=== PATIENT | female | born 1970 | race Caucasian/White ===

== ENCOUNTER 2017-07-10 10:35 | Emergency (ER) | payer OTHER ==
[~2017-07-10] VITALS: Ht 160 cm; Wt 83.0 kg
[~2017-07-10 10:35] MED LIST: FEXO1TAB58 PO
[2017-07-10 11:02] VITALS: TEMP 36.6; Ht 160 cm; Wt 83.0 kg
--- NOTE | 2017-07-10 11:39 | EMERGENCY ROOM VISIT NOTE ---
History First contact with patient: 11:23 Chief Complaint: FLANK PAIN Stated Complaint: BACK PAIN SHOOTS TO FRONT KIDNEY POSS STONE History of Present Illness The patient is a 46 year old female who presents to the Emergency Room with complaints of left flank pain radiating into the left pelvis with nausea which began yesterday morning. Patient states she does have a history of kidney stones, and while this pain is not as severe as pain she has had with previous kidney stones, it does remind her of that same type of pain. She states the pain comes and goes, and seems to be worse with movement. Patient admits to feeling bloated in addition to the pain. She denies any urinary symptoms including frequency, hesitancy, dysuria, or hematuria. She denies any recent illness, upper respiratory infection symptoms, vomiting, diarrhea, constipation , chest pain, or dyspnea. She describes the pain as shooting, and rates it 8/ 10 when it occurs, however it does not come very frequently and seems to be very dull in that area the rest of the time. She states she has been taking ibuprofen which does mildly help with the symptoms. The patient denies any recent fever or chills. Review of Systems A complete 10 point review of systems was reviewed with the patient with pertinent positives and negatives as per history of present illness. All else were negative. Past Medical/Surgical History Surgical Problems: (1) H/O: hysterectomy Family History Diabetes mellitus FH: heart disease FHx: cancer FHx: gallbladder disease Hypertension Kidney disease Kidney stones Social History Smoking Status: Never Smoker Smokeless Tobacco Use: No Alcohol Use: occasionally Drug Use: none Housing Status: lives with family Occupation Status: employed Current/Historical Medications Scheduled Fexofenadine-Pseudoephedrine (Lety-D 24 Hour Allergy), 1 TAB PO HS Ibuprofen (Advil), 400 MG PO UD Polyethylene Glycol 3350 (Miralax), 17 GM PO DAILY Physical Exam Vital Signs Date Time Temp Pulse Resp B/P (MAP) Pulse Ox O2 Delivery O2 Flow Rate FiO2 07/10/17 15:49 73 18 113/77 99 Room Air 07/10/17 14:01 78 18 108/68 100 Room Air 07/10/17 12:28 65 18 95/66 95 Room Air 07/10/17 11:02 36.6 77 20 116/76 99 Room Air Physical Exam VITALS: Vitals are noted on the nurse's note and reviewed by myself. Vital signs stable. GENERAL: This is a 46-year-old white female, in no acute distress, nondiaphoretic, well-developed well-nourished. SKIN: The skin was without rashes, erythema, edema, or bruising. There is no tenting of the skin. Capillary reflex less than 2 seconds. HEAD: Normocephalic atraumatic. EARS: External auditory canals clear, tympanic membranes pearly gerardo without erythema or effusion bilaterally. EYES: Pupils equal round and reactive to light and accommodation. Conjunctivae without injection, sclerae without icterus. Extraocular movements intact. NOSE: Patent, turbinates without inflammation or discharge. No sinus tenderness. MOUTH: Mucous membranes moist. Tonsils are not enlarged. Pharynx without erythema or exudate. Uvula midline. Airway patent. Tongue does not deviate. NECK: Supple without nuchal rigidity. No lymphadenopathy. No thyromegaly. Cervical spine is nontender. No JVD. HEART: Regular rate and rhythm without murmurs gallops or rubs. LUNGS: Clear to auscultation bilaterally without wheezes, rales or rhonchi. No dullness to percussion. No retractions or accessory muscle use. ABDOMEN: Positive bowel sounds x 4. Normal tympanic percussion. Tenderness in the left suprapubic/pelvic region. Positive CVA tenderness on the left. The abdomen was otherwise soft, without masses or organomegaly. Dubois sign negative. No guarding or rebound tenderness. MUSCULOSKELETAL: No muscle atrophy, erythema, or edema noted. Full range of motion without joint tenderness in all extremities. No tenderness to palpation. Normal gait. Strength 5/5 throughout. NEURO: Patient was alert and oriented to person place and time. Normal sensation to light and sharp touch. Deep tendon reflexes 2+ throughout. No focal neurological deficits. Medical Decision & Procedures ER Provider Diagnostic Interpretation: KUB CLINICAL HISTORY: 46 years-old Female presenting with left flank pain. TECHNIQUE: Single supine view of the abdomen was obtained. COMPARISON: None. FINDINGS: Moderate stool burden in the right colon. Diffuse gaseous distention of small bowel, which has a stacked appearance. Cholecystectomy clips noted. No gross pneumoperitoneum. Allowing for bowel gas and stool, no calcifications to suggest nephrolithiasis. Numerous pelvic phleboliths. Osseous structures normal. IMPRESSION: 1. The stacked appearance of the gaseous distended small bowel raises concern for obstruction. Clinical and imaging follow-up recommended. 2. Moderate stool burden in the right colon suggest constipation. 3. Limited evaluation for renal calculi. The report will be called/faxed according to standard departmental protocol. Electronically signed by: Peña Giordano M.D. 07/10/2017 12:28 PM Dictated Date/Time: 07/10/2017 12:26 PM ABD/PELVIS IV AND ORAL CONT CLINICAL HISTORY: 46 years-old Female presenting with possible bowel obstruction, LLQ abdominal pain. TECHNIQUE: Multidetector CT of the abdomen and pelvis was performed after the administration of oral and intravenous contrast. IV contrast: 93 mL of Optiray 320. A dose lowering technique was used consistent with the principles of ALARA (as low as reasonably achievable). COMPARISON: None. CT DOSE (mGy.cm): The estimated cumulative dose is 701.29 mGy.cm. FINDINGS: Janitor Head topogram: Cholecystectomy clips. Lung bases: Lungs and pleural spaces clear. Normal heart size. No pericardial or pleural effusion. Liver: Normal morphology. No liver lesion. Patent hepatic vasculature. Biliary: Mild biliary ductal prominence likely a reservoir effect in the post cholecystectomy state. Gallbladder surgically absent. Pancreas: Normal. Spleen: Normal. Adrenal glands: Normal. Kidneys and ureters: Well-defined hypodensity in the left kidney, likely cyst. Otherwise normal renal parenchyma. No nephrolithiasis. No hydronephrosis. Bladder: Normal. Pelvic organs: Uterus surgically absent. The right ovary contains a 2.4 cm dominant follicle, which would be normal in the premenopausal setting. Bowel: Moderate stool burden in the right and proximal transverse colon. No bowel obstruction. Small hiatal hernia noted. Adhesions may be present in the pelvis. Mild small bowel wall thickening in a limited segment of small bowel in the right mid abdomen though this may be due to underdistention (series 3 image 277). No perienteric or pericolonic inflammatory change. Peritoneal cavity: No free fluid or intraperitoneal gas. Lymph nodes: Few prominent lymph nodes in the portal caval region and man hepatis measuring up to 10 mm in the short axis, possibly reactive. Vasculature: Aorta and IVC patent and normal in caliber. Abdominal wall: Normal. Musculoskeletal: Degenerative changes of the spine. Bilateral pars defects of L5 with anterolisthesis of L5 on S1. IMPRESSION: 1. No evidence of bowel obstruction. No convincing evidence of acute intra-abdominal pathology. 2. Right ovary contains a 2.4 cm dominant follicle, which are be normal in the premenopausal setting. Correlate clinically. Electronically signed by: Peña Giordano M.D. 07/10/2017 2:58 PM Dictated Date/Time: 07/10/2017 2:48 PM Laboratory Results 07/10/17 11:17 Red Blood Count 4.45, Mean Corpuscular Volume 98.7, Mean Corpuscular Hemoglobin 33.7, Mean Corpuscular Hemoglobin Concent 34.2, Mean Platelet Volume 9.4, Neutrophils (%) (Auto) 60.6, Lymphocytes (%) (Auto) 29.3, Monocytes (%) (Auto) 8.0, Eosinophils (%) (Auto) 1.5, Basophils (%) (Auto) 0.3, Neutrophils # (Auto) 4.12, Lymphocytes # (Auto) 1.99, Monocytes # (Auto) 0.54, Eosinophils # (Auto) 0.10, Basophils # (Auto) 0.02 07/10/17 11:17 Test 07/10/17 11:17 White Blood Count 6.79 K/uL (4.8-10.8) Red Blood Count 4.45 M/uL (4.2-5.4) Hemoglobin 15.0 g/dL (12.0-16.0) Hematocrit 43.9 % (37-47) Mean Corpuscular Volume 98.7 fL (80-100) Mean Corpuscular Hemoglobin 33.7 pg (25-34) Mean Corpuscular Hemoglobin Concent 34.2 g/dl (32-36) Platelet Count 233 K/uL (130-400) Mean Platelet Volume 9.4 fL (7.4-10.4) Neutrophils (%) (Auto) 60.6 % Lymphocytes (%) (Auto) 29.3 % Monocytes (%) (Auto) 8.0 % Eosinophils (%) (Auto) 1.5 % Basophils (%) (Auto) 0.3 % Neutrophils # (Auto) 4.12 K/uL (1.4-6.5) Lymphocytes # (Auto) 1.99 K/uL (1.2-3.4) Monocytes # (Auto) 0.54 K/uL (0.11-0.59) Eosinophils # (Auto) 0.10 K/uL (0-0.5) Basophils # (Auto) 0.02 K/uL (0-0.2) RDW Standard Deviation 44.6 fL (36.4-46.3) RDW Coefficient of Variation 12.3 % (11.5-14.5) Immature Granulocyte % (Auto) 0.3 % Immature Granulocyte # (Auto) 0.02 K/uL (0.00-0.02) Urine Color YELLOW Urine Appearance CLEAR (CLEAR) Urine pH 6.5 (4.5-7.5) Urine Specific [place] 1.017 (1.000-1.030) Urine Protein NEG (NEG) Urine Glucose (UA) NEG (NEG) Urine Ketones NEG (NEG) Urine Occult Blood NEG (NEG) Urine Nitrite NEG (NEG) Urine Bilirubin NEG (NEG) Urine Urobilinogen NEG (NEG) Urine Leukocyte Esterase NEG (NEG) Anion Gap 7.0 mmol/L (3-11) Est Creatinine Clear Calc Drug Dose 94.6 ml/min Estimated GFR () 110.0 Estimated GFR (Non- 94.9 BUN/Creatinine Ratio 17.2 (10-20) Calcium Level 8.8 mg/dl (8.5-10.1) Total Bilirubin 0.6 mg/dl (0.2-1) Aspartate Amino Transf (AST/SGOT) 14 U/L (15-37) Alanine Aminotransferase (ALT/SGPT) 18 U/L (12-78) Alkaline Phosphatase 43 U/L (45-117) Total Protein 7.4 gm/dl (6.4-8.2) Albumin 4.3 gm/dl (3.4-5.0) Globulin 3.1 gm/dl (2.5-4.0) Albumin/Globulin Ratio 1.4 (0.9-2) Lipase 165 U/L (73-393) ED Course Patient was seen and evaluated as above. IV access obtained, labs drawn. Laboratory testing was reviewed. KUB reviewed by myself and radiologist as above. The case was discussed with my attending. Canceled pelvic ultrasound and ordered CT of the abdomen and pelvis with IV and PO contrast. Reviewed the CT scan as above. I discussed discharge instructions with the patient at bedside. The patient's questions were answered to her satisfaction. The patient was discharged home in good condition. Medical Decision This is a 46-year-old female patient presented to the emergency department today complaining of left flank pain which radiates straight through to the left pelvic region. The patient has had some associated nausea, however has not had any vomiting. She states she does have a history of kidney stones, and her pain feels similar, however not as severe as previous kidney stones. The pain comes intermittently and is very sharp, but she states she has dull, if any pain consistently in the lower abdomen. The patient's laboratory workup here in the emergency department was overall negative. CBC is without leukocytosis, anemia, thrombocytopenia. CMP did not reveal any significant renal, hepatic, electrolyte abnormalities. The patient's lipase testing was normal. Urinalysis did not show signs of infection and was negative for blood. Patient's initial KUB x-ray did show some dilated loops of bowel with possible bowel obstruction. CT scan was negative for bowel obstruction. The patient does report a history of intermittent constipation, and states she often has irregular bowel movements. She states she will have one bowel movement, then may go several days to a week without having another. She states she does occasionally get some abdominal pain associated when she has not had bowel movements consistently. I suspect her pain is related to some constipation and possible bowel spasms. The patient will be treated with MiraLAX and OTC pain medications. She is agreeable to this plan of care, and will follow up outpatient with her primary care provider. Etiologies such as appendicitis, diverticulitis, obstruction, inflammatory bowel disease, renal colic, PUD, biliary pathology, pancreatitis, mesenteric ischemia, aortic pathology, infections, genitourinary, UTI, perforated viscus, as well as others were entertained. Medication Reconcilliation Current Medication List: was personally reviewed by mi Blood Pressure Screening Patient's blood pressure: Normal blood pressure Impression Primary Impression: Left flank pain Additional Impression: Constipation Departure Information Dispostion Home / Self-Care Condition GOOD Prescriptions Polyethylene Glycol 3350 (MIRALAX) 1 Pow Pow 17 GM PO DAILY, #527 GM Prov: Kaleigh Sidhu PA-C 07/10/17 Referrals Dee Garcia M.D. (PCP) Patient Instructions ED Abdominal Pain Unkn Cause, My [facility] Additional Instructions You have been treated in the Emergency Department your Abdominal Pain. Laboratory results and imaging studies have ruled out any emergent causes for your abdominal pain which would warrant admission or surgery. As discussed, imaging did show a moderate amount of stool within the bowel on the right side. I suspect some constipation that could be contributing to your discomfort. Please take MiraLAX daily as needed until bowel movement is produced. Please do not use this more than 4-5 days without physician supervision. I do recommend a clear liquid diet for 24-48 hours. After that time, and if you have moved her bowels, you can slowly start introducing soft foods which are high in fiber. Please eat a high-fiber diet. He may want to consider adding a fiber supplement to your daily routine. For pain control, you can use the following [id number] medicines (if >12 yo): Ibuprofen(Motrin, Advil) may be used for fever or pain. Use 600mg every six hours as needed. Take with food. Avoid using more than 2400mg in a 24 hour period. Do not use 2400mg per day for more than three consecutive days without physician direction. Prolonged inappropriate use can lead to stomach upset or ulcers. (AND/OR) Acetaminophen(Tylenol) may be used for fever or pain. Use 1000mg every six hours as needed. Avoid using more than 3000mg in a 24 hour period. Drink plenty of water and stay well hydrated. As with any trip to the Emergency Department, you should follow-up with your Primary Care Provider from today's visit. I do recommend follow-up in 1-2 days for reevaluation. As discussed, if you continue to have ongoing constipation issues, I do recommend considering gastrointestinal referral. Return to the emergency department if your symptoms persist despite treatment plan outlined above or if the following symptoms occur: increased fevers, chills , worsening nausea/vomiting, blood in your stool or urine. Problem Qualifiers Additional Impression: Constipation Constipation type: unspecified constipation type Qualified Codes: K59.00 - Constipation, unspecified
[2017-07-10 11:58] LABS: BASO % 0.3 %; BASO ABS # 0.02 K/uL (0-0.2); EOS % 1.5 %; HEMATOCRIT 43.9 % (37-47); IG# 0.02 K/uL (0.00-0.02); LYMPH % 29.3 %; LYMPH ABS # 1.99 K/uL (1.2-3.4); MEAN CELL VOLUME 98.7 fL (80-100); MEAN CORPUSCULAR HEMOGLOBIN 33.7 pg (25-34); MEAN CORPUSCULAR HGB CONC 34.2 g/dl (32-36); MEAN PLATELET VOLUME 9.4 fL (7.4-10.4); MONO ABS # 0.54 K/uL (0.11-0.59); NEUT % 60.6 %; NEUT ABS # 4.12 K/uL (1.4-6.5); PLATELET COUNT 233 K/uL (130-400); RED CELL DISTRIBUTION WIDTH CV 12.3 % (11.5-14.5); RED CELL DISTRIBUTION WIDTH SD 44.6 fL (36.4-46.3); WHITE BLOOD COUNT 6.79 K/uL (4.8-10.8)
[2017-07-10 12:15] LABS: ALBUMIN 4.3 gm/dl (3.4-5.0); CALCIUM 8.8 mg/dl (8.5-10.1); CREATININE 0.75 mg/dl (0.60-1.20); POTASSIUM 3.6 mmol/L (3.5-5.1)
[2017-07-10 12:18] LABS: TOTAL PROTEIN 7.4 gm/dl (6.4-8.2)
--- NOTE | 2017-07-10 12:29 | DIAGNOSTIC IMAGING REPORT ---
KUB CLINICAL HISTORY: 46 years-old Female presenting with left flank pain. TECHNIQUE: Single supine view of the abdomen was obtained. COMPARISON: None. FINDINGS: Moderate stool burden in the right colon. Diffuse gaseous distention of small bowel, which has a stacked appearance. Cholecystectomy clips noted. No gross pneumoperitoneum. Allowing for bowel gas and stool, no calcifications to suggest nephrolithiasis. Numerous pelvic phleboliths. Osseous structures normal. IMPRESSION: 1. The stacked appearance of the gaseous distended small bowel raises concern for obstruction. Clinical and imaging follow-up recommended. 2. Moderate stool burden in the right colon suggest constipation. 3. Limited evaluation for renal calculi. The report will be called/faxed according to standard departmental protocol. Electronically signed by: Peña Giordano M.D. 07/10/2017 12:28 PM Dictated Date/Time: 07/10/2017 12:26 PM
[2017-07-10] MEDS ORDERED: IBUP-1050 PO (12:37)
[2017-07-10] MEDS ORDERED: OPTIRAY 320 IV PRN (12:45)
--- NOTE | 2017-07-10 15:00 | DIAGNOSTIC IMAGING REPORT ---
ABD/PELVIS IV AND ORAL CONT CLINICAL HISTORY: 46 years-old Female presenting with possible bowel obstruction, LLQ abdominal pain. TECHNIQUE: Multidetector CT of the abdomen and pelvis was performed after the administration of oral and intravenous contrast. IV contrast: 93 mL of Optiray 320. A dose lowering technique was used consistent with the principles of ALARA (as low as reasonably achievable). COMPARISON: None. CT DOSE (mGy.cm): The estimated cumulative dose is 701.29 mGy.cm. FINDINGS: Emergency Management Consultant topogram: Cholecystectomy clips. Lung bases: Lungs and pleural spaces clear. Normal heart size. No pericardial or pleural effusion. Liver: Normal morphology. No liver lesion. Patent hepatic vasculature. Biliary: Mild biliary ductal prominence likely a reservoir effect in the post cholecystectomy state. Gallbladder surgically absent. Pancreas: Normal. Spleen: Normal. Adrenal glands: Normal. Kidneys and ureters: Well-defined hypodensity in the left kidney, likely cyst. Otherwise normal renal parenchyma. No nephrolithiasis. No hydronephrosis. Bladder: Normal. Pelvic organs: Uterus surgically absent. The right ovary contains a 2.4 cm dominant follicle, which would be normal in the premenopausal setting. Bowel: Moderate stool burden in the right and proximal transverse colon. No bowel obstruction. Small hiatal hernia noted. Adhesions may be present in the pelvis. Mild small bowel wall thickening in a limited segment of small bowel in the right mid abdomen though this may be due to underdistention (series 3 image 277). No perienteric or pericolonic inflammatory change. Peritoneal cavity: No free fluid or intraperitoneal gas. Lymph nodes: Few prominent lymph nodes in the portal caval region and man hepatis measuring up to 10 mm in the short axis, possibly reactive. Vasculature: Aorta and IVC patent and normal in caliber. Abdominal wall: Normal. Musculoskeletal: Degenerative changes of the spine. Bilateral pars defects of L5 with anterolisthesis of L5 on S1. IMPRESSION: 1. No evidence of bowel obstruction. No convincing evidence of acute intra-abdominal pathology. 2. Right ovary contains a 2.4 cm dominant follicle, which are be normal in the premenopausal setting. Correlate clinically. Electronically signed by: Peña Giordano M.D. 07/10/2017 2:58 PM Dictated Date/Time: 07/10/2017 2:48 PM
[2017-07-10] MEDS ORDERED: POLY335019 PO (15:42)
[2017-07-10 15:49] VITALS: BP 113/77; PULSE 73; O2SAT 99
== END 2017-07-10 15:54 | disposition home or self-care (01) ==
LOC: C.EDB 10:38 → C.EDA 15:54
DX: R10.9 Unspecified abdominal pain (principal); K59.00 Constipation, unspecified; Z87.442 Personal history of urinary calculi; Z83.3 Family history of diabetes mellitus; Z82.49 Family history of ischemic heart disease and other diseases of the circulatory system; Z80.9 Family history of malignant neoplasm, unspecified; Z83.79 Family history of other diseases of the digestive system; Z84.1 Family history of disorders of kidney and ureter